=== PATIENT | male | born 1940 | race African-American/Black ===

== ENCOUNTER 2019-08-06 17:46 | Inpatient (IN) | payer OTHER ==
[~2019-08-06] VITALS: Ht 172.7 cm; Wt 65.3 kg
--- NOTE | 2019-08-06 17:53 | NUR ---
PATIENT ARRIVED VIA EMS FROM [facility] IN [place] AT 1730 - ALERT AND ORIENTED. PATIENT RESISTIVE TO PROTOCOL AT HOSPITAL AND REFUSES TO GIVEN STAFF CROSS HE IS WEARING. ADVISED WOULD PLACE IN SAFE BUT STILL UNWILLING. HAD TO CALL SECURITY TO HELP PUT CROSS AWAY WITH VALUABLES. PATIENT UPSET AND FEELS BEING HELD AGAINST HIS WILL. PATIENT AMBULATORY AND VERY VERBAL IN WHAT HE WANTS.
[2019-08-06] MEDS ORDERED: TYLENOL EXTRA500 MG PO (18:34)
[2019-08-06] MEDS ORDERED: ACCUNEB SO1.25 MG/1 INH (18:35)
[2019-08-06] MEDS ORDERED: VITCB500GO PO (18:39)
[2019-08-06] MEDS ORDERED: VITAMINC500 PO (18:41)
[2019-08-06] MEDS ORDERED: ASPIR 8181 MG PO (18:42)
[2019-08-06] MEDS ORDERED: LIPITOR 20 MG T20 M1 PO (18:43)
[2019-08-06] MEDS ORDERED: CARVEDILOL12.5 MG PO (18:46)
[2019-08-06] MEDS ORDERED: VITAMIN D1000 UNIT PO (18:48)
[2019-08-06] MEDS ORDERED: COLACE100 MG PO (18:50)
[2019-08-06] MEDS ORDERED: IRON325 PO (18:51)
[2019-08-06] MEDS ORDERED: LASIX 40 MG TAB40 M2 PO (18:52)
[2019-08-06] MEDS ORDERED: GLUCOTROL5 MG PO (18:54)
[2019-08-06] MEDS ORDERED: HYDRALAZINE 2525 MG PO (18:55)
[2019-08-06] MEDS ORDERED: IMDUR 60 MG TAB60 M1 PO (18:56)
[2019-08-06] MEDS ORDERED: LISINOPRIL10 MG PO (18:57)
[2019-08-06] MEDS ORDERED: UNICOMPLEX M TA1 TA1 PO (18:58)
[2019-08-06] MEDS ORDERED: PANTOPRAZOLE SO40 M1 PO (19:00)
[2019-08-06] MEDS ORDERED: TRAZODONE HCL50 MG PO (19:01)
[2019-08-06 21:47] VITALS: BP 174/96
--- NOTE | 2019-08-07 00:26 | NUR ---
ASSUMED CARE OF THE PT AT 191 PM. ALERT ET ORIENTED X 3. MAKES NEEDS KNOWN. WALKS WITH A STEADY GAIT. HEART RATE REGULAR, LUNGS CLEAR BILATERALLY, RESP., EVEN, AND UNLABORED. +BS HEARD IN ALL 4 QUADRANTS. ABD SOFT ET NONTENDOR. ABD SOFT ET NONTENDOR. DENIES ANXIETY, DEPRESSION, SI/HI/A/V HALLUNICATIONS. REMAINS ON 12 MINUTE CHECKS FOR HIS SAFETY.
--- NOTE | 2019-08-07 04:15 | NUR ---
THE PT WENT TO THE BATHROOM, WALKS WITH A STEADY GAIT. THE PT'S DPOA NEVER CALLED BACK, WILL CALL HER THIS AM.
--- NOTE | 2019-08-07 06:41 | NUR ---
attempted to call the pt's DPOA, TORI PERALTA, , WAS UNABLE TO LEAVE A MESSAGE THE ANSWERING MACHINE SAID THE MAILBOX WAS FULL.
[2019-08-07 09:40] VITALS: BP 184/86
--- NOTE | 2019-08-07 10:58 | NUR ---
SW called DPOA and was unable to leave a VM.
--- NOTE | 2019-08-07 11:38 | NUR ---
SW spoke with pt for SW intake and he provided accurate social HX but belives that his granddaughter is his girlfriend that god has provided to him. He knows that she is 39 years old, but believes that they will be soon, and that she wants to be . Rani talked to graddaughter Chang Edwards " Concepcion" [phone]. She reported that this delusion started 2 years ago after his 2nd , and has increased in severity in the last 3 months. He now belives the post office is keeping his money, and will drive all around town looking for her and is angry that she might be " breaking up with him". Pt believes that he is inpt psych by accident and is only interested in physical treatment.
--- NOTE | 2019-08-07 13:03 | NUR ---
PATIENT HAS BEEN AGREEABLE AND RESPONSIVE TO STAFF. REPEATIOUS AT TIMES STATING HE SHOULD NOT BE HERE - SPOKE WITH [employer] MAINTENANCE TECHNICIAN AND MET WITH DR. GARCIA. PATIENT DENIES ANY S/I - AFFECT BRIGHT AND MOOD UPBEAT - JUST CONFUSED ON WHY HE IS HERE. MEDICATION COMPLIANT. BLOOD SUGAR TAKEN THIS MORNING - 164. MAKES NEEDS KNOWN. GOOD APPETITE.
[2019-08-07 14:50] LABS: FOLIC ACID 56.1 ng/mL (8.6-58.9)
[2019-08-07 14:57] LABS: HEMATOCRIT 33.2 % (42.0-52.0); HEMOGLOBIN 10.6 gm/dL (14.0-18.0); MCH 27.3 pg (26.0-34.0); MCHC 31.8 g/dL (28.0-37.0); MCV 85.8 fL (80.0-100.0); RBC 3.87 mil/uL (4.50-6.00); RDW 17.8 % (10.5-14.5); WBC 5.8 thou/uL (4.0-11.0)
[2019-08-07 15:09] LABS: ALBUMIN 3.6 g/dL (3.4-5.0); CALCIUM 9.8 mg/dL (8.5-10.1); CREATININE 1.5 mg/dL (0.7-1.3); MAGNESIUM 1.7 mg/dL (1.8-2.4); POTASSIUM 4.7 mmol/L (3.5-5.1); TOTAL BILIRUBIN 0.4 mg/dL (<0.1-1.0); TOTAL PROTEIN 7.1 g/dL (6.4-8.2)
[2019-08-07 19:34] VITALS: BP 183/75
[2019-08-08 05:36] LABS: GLYCOHEMOGLOBIN (HGB A1C) 11.9 % (4.8-5.6)
[2019-08-08 05:47] LABS: HEMATOCRIT 32.3 % (42.0-52.0); HEMOGLOBIN 9.9 gm/dL (14.0-18.0); MCH 27.1 pg (26.0-34.0); MCHC 30.6 g/dL (28.0-37.0); MCV 88.6 fL (80.0-100.0); RBC 3.64 mil/uL (4.50-6.00); WBC 6.2 thou/uL (4.0-11.0)
[2019-08-08 05:48] LABS: CALCIUM 9.2 mg/dL (8.5-10.1); CREATININE 1.2 mg/dL (0.7-1.3); MAGNESIUM 1.7 mg/dL (1.8-2.4); POTASSIUM 4.2 mmol/L (3.5-5.1)
[2019-08-08 09:50] VITALS: BP 173/99
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
[2019-08-08 15:00] VITALS: BP 159/78
[2019-08-08 20:13] VITALS: BP 140/70
--- NOTE | 2019-08-09 03:27 | NUR ---
PT OUT IN DAY ROOM AT START OF SHIFT, BUT ON THE EDGE OF THE GROUP. RESPONSIVE TO STAFF AND COOPERATIVE WITH ASSESSMENT. TOOK HS MEDS W/O PROBLEM. BS 251 AT HS. 20u GLARGINE, AND 12u LANTUS. READ IN ROOM FOR A WHILE AND SLEPT WELL THROUGH THE NIGHT.
[2019-08-09 07:47] VITALS: BP 158/78
--- NOTE | 2019-08-09 18:51 | NUR ---
VISIBLE IN DAYROOM SITTING WITH PEERS-INITALLY THIS AM NO NOTED INTERACTION WITH PEERS BUT THIS PM WAS CONVERSING WITH A MALE PEER IN DINING ROOM.DYSHORIC MOOD-IRRITABLE AND ABRUPT AT TIMES WITH MULTIPLE COMPLAINTS RE FOOD,PEERS,ENVIRONMENT ETC-STATING "I JUST WANT TO GO HOME-EVERYONE ELSE HAS LEFT EXCEPT ME" COMPLIENT WITH TAKING PO MEDS WHOLE-VS 158/78-BLOOD SUGAR 122-279 AND 189-INSULIN GIVEN PER SS ORDERS. DENIES ACUTE ANXIETY-MMOD ISSUES,PSYCHOSIS/A/V HALLUCINATIONS. "THE ONLY THING THAT IS MAKING ME CRAZY IS BEING HERE"
[2019-08-09 21:30] VITALS: BP 182/82
[2019-08-09 21:44] VITALS: BP 182/82
--- NOTE | 2019-08-10 04:17 | NUR ---
Assumed pt care at 1900. Pt is A/OX4,up ad stephen unit without problems. Denies SI. Compliant with staff and took HS meds w/o problems. C/o generalized aches allover medicated with Tylenol per EMAR with relief reported. Edema noted to BLE encouraged to keep extremities elevated while laying down and doing so. Up at 0240 complaining he is hungry,snacks given and pt went back to bed at 0408. Will continue to monitor pt.
[2019-08-10 06:44] VITALS: BP 155/73
[2019-08-10 09:51] VITALS: BP 158/77
[2019-08-10 19:09] LABS: SYPHILIS AB Negative (Negative)
[2019-08-10 21:00] VITALS: BP 168/73
--- NOTE | 2019-08-11 03:04 | NUR ---
Care assumed of patient at 1915: Patient alert and oriented x4. Patient sitting in his room reading the paper at start of shift. Patient came out to dining room for HS snack and socialization. Patient calm, pleasant and cooperative. Interactive with staff. Smiling, appears happy. No delusional thoughts noted. Denies SI/HI/AH/VH. Patient appears to have organized thoughts, goal directed. Provided scheduled pain medication. At 1 hour follow up, patient sleeping quietly in bed. Patient took HS medication without difficulty. Patient has been able to rest quietly this shift.
--- NOTE | 2019-08-12 00:10 | NUR ---
ASSUMED CARE OF PATIENT AT APPROXIMATELY 1915, HE IS CALM AND COOPERATIVE, ALERT AND ORIENTED X4. DURING ONE TO ONE WITH PATIENT HE WAS IN THE DAY ROOM INTERACTING, LAUGHING, AND SMILING WITH OTHER PATIENTS AND WITH THIS NURSE. HE APPEARS WITH A BRIGHT AFFECT, DENIES FEELINGS OF DEPRESSION ET ANXIETY. HE ALSO DENIES SI HI SH WELL HALLUCINATIONS. HE IS FOCUSED ON DISCHARGE. PATIENT DID CHANGE ROOMS TONIGHT AND WAS HAPPY REGARDING THIS. HE DENIED MEDICAL CONCERNS WITH NO S/S OF DISTRESS. NURSING WILL MAINTAIN Q12 CHECKS TO ENSURE SAFETY AT ALL TIMES.
[2019-08-12 10:20] VITALS: BP 152/70
--- NOTE | 2019-08-12 15:33 | NUR ---
ANA called and spoke to [facility] [place] and they will be adding meds management to his care plan, and pick him up at 1pm on Friday and [facility] back to the [facility] [place].
--- NOTE | 2019-08-12 17:11 | NUR ---
ANA spoke with pt's DPOA and she is aware of his d/c plans. She is also in contact wiht [facility] at the [facility], and will be filing out his medicaid application for a later date.
--- NOTE | 2019-08-12 18:40 | NUR ---
PATIENT HAS BEEN UP AND OUT ON THE UNIT, CALM, COOPERATIVE WITH CARE. PATIENT IS EATING MEALS AND DRINKING FLUID WELL. PATIENT TOOK ALL MEDICATION WHOLE WITHOUT DIFFICULTY. PATIENT DENIES SUICIDAL AND HOMOCIDAL IDEATION. AFFFECT IS BRIGHT, MOOD IS HAPPY. NO S&S OF HYPO/HYPERGLYCEMIA NOTED INSULIN GIVEN PER ODER, NO SING OF ACUTE DISTRESS NOTED, WILL MONITOR FOR SAFETY.
[2019-08-12 19:42] VITALS: BP 146/71
--- NOTE | 2019-08-12 23:37 | NUR ---
PT SITTING IN CHAIR IN DAYROOM TALKING WITH PEER. PT SMILING LAUGHING, GOOD EYE CONTACT, WEARING GLASSES AND HAT. DISCUSSED WITH NURSE HE HAD A GOOD DAY AND HAS LOTION FOR HIS SKIN TO HELP PREVENT WOUNDS FOR HIS DM. PT GAVE SELF SHOWER. PT HAD HS SNACK AND COMPLIANT WITH MEDS. STEADY GAIT.
--- NOTE | 2019-08-13 11:16 | NUR ---
0700: Report rec from noc shift, care assumed. [id number]: Ambulatory independently in room, halls and to DR. Braswell, oriented to name and place. Feeds self, appetite good, takes meds whole w/o difficulty, cooperative with staff, mood is cheerful, talkative with staff. No attendance noted for 09 therapy group, pt resting in bed with eyes closed.
[2019-08-13 11:27] VITALS: BP 139/62
[2019-08-13] MEDS ORDERED: HYDRALAZINE 5050 MG PO (12:12)
[2019-08-13] MEDS ORDERED: TERAZOSIN HCL5 MG PO (12:14)
[2019-08-13] MEDS ORDERED: HYDROCODON-ACE1 EAC7 PO (12:14)
[2019-08-13] MEDS ORDERED: TRAZODONE HCL50 MG PO (12:15)
[2019-08-13] MEDS ORDERED: ABILIFY 5 MG TAB5 M1 PO (12:15)
[2019-08-13] MEDS ORDERED: MAGOX 400400 MG PO (12:16)
[2019-08-13] MEDS ORDERED: LANTUS SUBQ (12:17)
[2019-08-13] MEDS ORDERED: METFORMIN HCL500 MG PO (12:18)
--- NOTE | 2019-08-14 10:26 | D ---
[facility] [place] [address] DISCHARGE SUMMARY Name: AGUS CHAPIN V Room #: 517-A [facility] IN M.R.#: [id number] Admission: 08/06/19 Attend Phys: Adriel Markham DO Discharge: 08/13/19 Date of : 40 Report #: [id number] THIS REPORT FOR: //name// CC: Adriel Markham FAM physician/PCP DATE OF SERVICE: 08/13/2019 ATTENDING PHYSICIAN: Adriel Markham DO. GRINDER SET UP OPERATOR EXTERNAL AT THE TIME OF DISCHARGE: Adriel Caldera M.D. 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 Medical comorbidities are numerous include congestive heart failure, coronary artery disease, hypertension, hyperlipidemia, diabetes mellitus type 2, uncontrolled with hemoglobin A1c of 11.9, COPD, chronic kidney disease, anemia of chronic disease, and benign prostatic hypertrophy. DISCHARGE PLAN: Discharge to his home in [place], [place]. The patient will get home health services particularly [facility] that [facility] management, assisted living placement also advised, but the patient declined. DISCHARGE MEDICATIONS: Hydralazine 50 mg p.o. 3 times a day for hypertension, albuterol 2.5 mg inhaled 4 times a day for COPD, aspirin 81 mg p.o. daily for cardioprotection, atorvastatin 80 mg p.o. daily for hyperlipidemia, Coreg 25 mg p.o. b.i.d. for hypertension, cholecalciferol 1000 international units p.o. daily, cholecalciferol supplementation, docusate sodium 100 mg p.o. b.i.d., hold if diarrhea, ferrous sulfate 325 mg p.o. daily for iron deficiency, furosemide 40 mg p.o. daily for diuresis, glipizide 2.5 mg p.o. daily for hyperglycemia, isosorbide mononitrate 60 mg p.o. daily for coronary artery disease, lisinopril 40 mg p.o. daily for hypertension, multivitamin with iron and minerals p.o. daily, pantoprazole 40 mg p.o. daily. LABORATORY DATA: Significant laboratory on this admission, CBC on 08/06/2019, H and H 9.9 and 32.3, white count 6.2, platelets 201. Glucose is running normal. Syphilis serology is negative. REASON FOR ADMISSION: Sent from the DC concerned for dementia or psychosis. HOSPITAL COURSE: The patient was admitted to [facility] [place] [address] DISCHARGE SUMMARY Name: AGUS CHAPIN V Room #: 517-A [facility] IN [facility].#: [id number] Admission: 08/06/19 Attend Phys: Adriel Markham DO Discharge: 08/13/19 Date of : 40 Report #: [id number] scored a on the [facility], consulted Dr. Deutch. Goodson from occupational therapy performed VIV. The patient found to be independent with assistance or assisted living and ADLs, neuro testing he performed better than I thought and with diagnosis of mild neurocognitive disorder. Given chronicity of the patient's hospitalization, seriousness of Graves' comorbidities, assisted living place was advised, but he declined. His step granddaughter, Concepcion is aware of this. PHYSICAL EXAMINATION: VITAL SIGNS: Temperature 36.7, pulse 85, respirations 18, BP 139/62. MENTAL STATUS EXAMINATION: Fairly normal dentition. This is a well-developed, well-nourished black male, appearing stated age. Attention limited. Concentration limited. Speech is normal rate. Thought content focused on discharge. Denied SI or HI. Denied hopelessness, helplessness. Memory not formally tested. Insight limited. Judgment fair. Fund of knowledge, no greater than average. PROGNOSIS: For this patient is guarded given his age, comorbidities, still be potential for involving dementia. <ELECTRONICALLY SIGNED> By: Adriel Markham DO 08/14/19 1026 0101 [id number] Adriel Markham DO /nt
== END 2019-08-13 13:30 | disposition home health service (06) | DRG 57 ==
LOC: SBH 17:46
PROVIDERS: Internal Medicine; ADMIT Psychiatry & Neurology Psychiatry
DX: G30.9 Alzheimer's disease, unspecified (principal); F02.81 Dementia in other diseases classified elsewhere, unspecified severity, with behavioral disturbance; F01.50 Vascular dementia, unspecified severity, without behavioral disturbance, psychotic disturbance, mood disturbance, and anxiety; F22 Delusional disorders; I50.9 Heart failure, unspecified; I25.10 Atherosclerotic heart disease of native coronary artery without angina pectoris; E78.5 Hyperlipidemia, unspecified; I11.0 Hypertensive heart disease with heart failure; N40.0 Benign prostatic hyperplasia without lower urinary tract symptoms; E11.65 Type 2 diabetes mellitus with hyperglycemia; J44.9 Chronic obstructive pulmonary disease, unspecified; Z79.82 Long term (current) use of aspirin; Z79.899 Other long term (current) drug therapy; Z88.8 Allergy status to other drugs, medicaments and biological substances
CPT/HCPCS: 10880